=== PATIENT | female | born 1995 | race Caucasian/White ===

== ENCOUNTER 2021-02-02 03:27 | Emergency (ER) | payer OTHER ==
[~2021-02-02] VITALS: Ht 162.6 cm; Wt 90.9 kg
[2021-02-02 03:29] VITALS: TEMP 98.1
[2021-02-02] MEDS ORDERED: PREDNISONE20 MG PO (04:16)
[2021-02-02 04:29] VITALS: BP 128/70; PULSE 78
== END 2021-02-02 04:29 | disposition home or self-care (01) ==
LOC: COL.ER 03:27
DX: T78.40XA Allergy, unspecified, initial encounter (principal)
CPT/HCPCS: J1200; J2930